=== PATIENT | male | born 1995 | race Caucasian/White ===

== ENCOUNTER 2020-02-18 13:38 | Emergency (ER) | payer BC ==
[2020-02-18] MEDS ORDERED: Cephalexin 500 MG Cap PO ONE (13:39)
[2020-02-18] MEDS: Diphtheria,Pertussis(Acell),Tetanus Vaccine 0.5 ML Syringe IM ONE (14:12)
--- NOTE | 2020-02-18 14:28 | EDM.PDOC ---
ED HPI GENERAL MEDICAL PROBLEM - General Chief Complaint: Laceration Stated Complaint: laceration Time Seen by Provider: 02/18/20 13:50 Source of Information: Reports: Patient History Limitations: Reports: No Limitations - History of Present Illness INITIAL COMMENTS - FREE TEXT/NARRATIVE: Patient to the emergency department working on some farm equipment has a laceration to the left hand third digit distally. Bleeding is controlled. There is no numbness or tingling. There is no proximal finger pain there is no hand pain there is no wrist pain no other symptoms. This happened just prior to arrival. The patient thinks that his tetanus shot is greater than 5 years. This will be updated in the emergency department Onset: Today Duration: Minutes: Location: Reports: Upper Extremity, Left Quality: Reports: Ache Severity: Mild Improves with: Reports: None Worsens with: Reports: None Context: Reports: Other (Laceration on farm equipment) Associated Symptoms: Denies: Confusion, Chest Pain, Nausea/Vomiting, Shortness of Breath, Weakness Treatments MID WIFE: Reports: Other (see below) (held pressure) Left Finger-Middle Pain Score (Numeric/FACES): 2 - Related Data Allergies Allergy/AdvReac Type Severity Reaction Status Date / Time No Known Allergies Allergy Verified 02/18/20 13:39 Home Meds: Home Meds cephALEXin [Keflex] 500 mg PO Q8H 7 Days #21 cap 02/18/20 [Rx] Past Medical History - Past Health History Medical/Surgical History: Denies Medical/Surgical History - Past Surgical History Head Surgeries/Procedures: Reports: None Social & Family History - Family History Family Medical History: Noncontributory - Tobacco Use Smoking Status *Q: Never Smoker - Caffeine Use Caffeine Use: Reports: Coffee - Recreational Drug Use Recreational Drug Use: No - Living Situation & Occupation Living situation: Reports: with Family Occupation: Employed ED ROS GENERAL - Review of Systems Review Of Systems: See Below Constitutional: Reports: No Symptoms. Denies: Fever HEENT: Reports: No Symptoms Respiratory: Reports: No Symptoms Cardiovascular: Reports: No Symptoms GI/Abdominal: Reports: No Symptoms. Denies: Nausea, Vomiting Musculoskeletal: Reports: Other (Pain to end of the left hand third digit palmar side approximately 1.5 cm laceration). Denies: Neck Pain, Back Pain Skin: Reports: Wound Neurological: Reports: No Symptoms. Denies: Numbness, Tingling Psychiatric: Reports: No Symptoms ED EXAM, SKIN/RASH Exam: See Below Exam Limited By: No Limitations General Appearance: Alert, WD/WN, No Apparent Distress Throat/Mouth: Normal Voice, No Airway Compromise Head: Atraumatic, Normocephalic Neck: Normal Inspection, Supple, Non-Tender, Full Range of Motion Respiratory/Chest: No Respiratory Distress, Lungs Clear, Normal Breath Sounds, Chest Non-Tender Cardiovascular: Normal Peripheral Pulses, Regular Rate, Rhythm, No Murmur Peripheral Pulses: 2+: Radial (L) Back Exam: Normal Inspection, Full Range of Motion Extremities: Normal Range of Motion, Normal Capillary Refill, Other (Laceration to the distal left third digit palmar side bleeding is controlled) Neurological: Alert, Oriented, Normal Cognition, Normal Gait, No Motor/Sensory Deficits Psychiatric: Normal Affect, Normal Mood Skin: Warm, Dry, Normal Color, Other (Laceration as above). No: Intact Location, Skin: Other (Left hand third digit distally palmar side) ED SKIN PROCEDURES - Laceration/Wound Repair Left Upper Anterior Distal Digit - 3rd (Middle) Appearance: Linear, Mildly Contaminated Distal NVT: Neuro & Vascular Intact, No Tendon Injury Anesthetic Type: Local Local Anesthesia - Lidocaine (Xylocaine): 1% Plain Local Anesthetic Volume: 4cc Skin Prep: Isopropyl Alcohol (Alcohol) Exploration/Debridement/Repair: Wound Explored, In a Bloodless Field, Explored to Base Closed with: Sutures Lac/Wound length In cm: 1.5 Suture Size: 5-0 # of Sutures: 5 Suture Type: Nylon Sterile Dressing Applied: Provider Tetanus Status Addressed: Other (updated in the ED) Complications: No Course - Vital Signs Text/Narrative:: Patient was evaluated in the emergency department the patient was advised of the need to clean and suture the wound and he agrees to proceed after the risks and benefits was explained. The was numbed locally with a total of 4 mL of 1% lidocaine without epi. Once the finger is numb the finger was cleaned extensively with normal saline and wound hand bobbin cleaner. No foreign body was noted. This was a dirty wound as the patient was working on machinery and I did advise him despite the best wound care that is still can become infected and also advised him that he will need to be started on antibiotics and he agrees. The patient will be discharged with Keflex 500 mg 3 times a day for 7 days to be advised to keep the wound clean and dry apply Neosporin 3 times a day leave open to the air as much as possible. The patient is to have this rechecked in 4 to 5 days and stitches can probably come out in 5 to 7 days. The patient is to return to the emergency department sooner if worse or any problems Last Recorded V/S: Last Vital Signs Temp 35.8 C L 02/18/20 13:39 Pulse 53 L 02/18/20 13:39 Resp 16 02/18/20 13:39 BP 107/51 L 02/18/20 13:46 Pulse Ox 100 02/18/20 13:39 - Orders/Labs/Meds Orders: Active Orders 24 hr Category Date Time Status Vaccines to be Administered [RC] PER UNIT ROUTINE Care 02/18/20 14:08 Active Meds: Medications Discontinued Medications Generic Name Dose Route Start Last Admin Trade Name Freq PRN Reason Stop Dose Admin Cephalexin 1 packet 02/18/20 14:56 02/18/20 15:00 Take Home: Cephalexin 500 Mg, 4 Cap Pack PO 02/18/20 14:57 1 packet ONETIME ONE Administration Diphtheria/Tetanus/Acell Pertussis 0.5 ml 02/18/20 14:08 02/18/20 14:12 Adacel IM 02/18/20 14:09 0.5 ml .ONCE ONE Administration Lidocaine HCl 20 ml 02/18/20 14:08 02/18/20 14:59 Xylocaine 1% INJECT 02/18/20 14:09 20 ml ONETIME ONE Administration Neomycin/Polymyxin/Bacitracin 1 each 02/18/20 14:49 02/18/20 14:59 Triple Antibiotic Oint TOP 02/18/20 14:50 1 each ONETIME ONE Administration Departure - Departure Time of Disposition: 14:53 Disposition: Home, Self-Care 01 Condition: Good Clinical Impression: Laceration of left middle finger w/o foreign body w/o damage to nail - Discharge Information *PRESCRIPTION DRUG MONITORING PROGRAM REVIEWED*: Not Applicable *COPY OF PRESCRIPTION DRUG MONITORING REPORT IN PATIENT JOSH: Not Applicable Prescriptions: cephALEXin [Keflex] 500 mg PO Q8H 7 Days #21 cap Referrals: Raymundo Davis MD [Primary Care Provider] - Forms: ED Department Discharge Additional Instructions: Keep the wound clean and dry Apply thin coat of Neosporin 3 times a day Keflex 500 mg 3 times a day for 7 days Have this wound rechecked in 3 to 4 days by your family doctor The sutures can probably come out in 7 days Leave the wound open to air as much as possible when you would be in a clean environment Return to the emergency department sooner if worse or any problems Sepsis Event Note (ED) - Evaluation Sepsis Screening Result: No Definite Risk - Focused Exam Vital Signs: Vital Signs Temp Pulse Resp BP Pulse Ox 02/18/20 13:46 107/51 L 02/18/20 13:39 35.8 C L 53 L 16 100 - Problem List & Annotations (1) Laceration of left middle finger w/o foreign body w/o damage to nail SNOMED Code(s): 87432635762169679, 06589959016854458 Code(s): S61.213A - LACERATION W/O FB OF L MID FINGER W/O DAMAGE TO NAIL, INIT Status: Acute Priority: Medium Current Visit: Yes Qualifiers: Encounter type: initial encounter Qualified Code(s): S61.213A - Laceration without foreign body of left middle finger without damage to nail, initial encounter - Problem List Review Problem List Initiated/Reviewed/Updated: Yes - My Orders Last 24 Hours: My Active Orders 02/18/20 14:08 Vaccines to be Administered [RC] PER UNIT ROUTINE - Assessment/Plan Last 24 Hours: My Active Orders 02/18/20 14:08 Vaccines to be Administered [RC] PER UNIT ROUTINE Plan: As above
[2020-02-18] MEDS: Lidocaine 1% 20 ML MDV INJECT ONE (14:59)
[2020-02-18] MEDS: Bacitracin/Neomycin/Polymyxin B Oint 0.9 GM U/D Packet TOP ONE (14:59)
[2020-02-18] MEDS: Take Home: Cephalexin 500 MG Cap, 4 Cap Pack PO ONE (15:00)
== END 2020-02-18 15:18 | disposition home or self-care (01) ==
LOC: CC.ED 13:38
DX: S61.213A Laceration without foreign body of left middle finger without damage to nail, initial encounter (principal); Z23 Encounter for immunization; W26.8XXA Contact with other sharp object(s), not elsewhere classified, initial encounter
CPT/HCPCS: 12001; 90471; 90715; 99282; A9270; J2001

== ENCOUNTER 2023-02-10 12:15 | Emergency (ER) | payer BC ==
[~2023-02-10 12:15] MED LIST: Sodium Chloride 0.9% 1,000 ML IV ONE
[2023-02-10 12:32] LABS: EOSINOPHILS ABSOLUTE AUTO 0.04 10^3/uL (0.00-1.50); EOSINOPHILS PERCENT AUTO 12.1 % (0-6); HEMATOCRIT 31.6 % (42.0-52.0); HEMOGLOBIN 10.8 g/dL (14.0-18.0); LYMPHOCYTES ABSOLUTE AUTO 0.23 10^3/uL (0.60-5.00); LYMPHOCYTES PERCENT AUTO 69.7 % (24-44); MEAN CORPUSCULAR HEMOGLOBIN 31.1 pg (27.0-32.0); MEAN CORPUSCULAR HGB CONC 34.2 g/dL (32.0-36.0); MEAN CORPUSCULAR VOLUME 91.1 fL (83.0-97.0); MONOCYTES ABSOLUTE AUTO 0.01 10^3/uL (0.00-1.50); NEUTROPHILS ABSOLUTE AUTO 0.05 x10^3/uL (1.80-8.00); NEUTROPHILS PERCENT AUTO 15.2 % (41-71); PLATELET COUNT,PLT 88 10^3/uL (150-400); RED BLOOD CELL COUNT 3.47 x10^6/uL (4.50-6.00)
[2023-02-10 12:46] LABS: ALANINE AMINOTRANSFERASE,ALT 110 U/L (12-78); ALBUMIN 3.2 g/dL (3.4-5.0); ALKALINE PHOSPHATASE 33 U/L (46-116); ASPARTATE AMNIOTRANSFERASE,AST 40 U/L (15-37); BILIRUBIN TOTAL 0.7 mg/dL (0.0-1.0); BLOOD UREA NITROGEN,BUN 21 mg/dL (7-18); CALCIUM 8.2 mg/dL (8.4-10.1); CARBON DIOXIDE,CO2 30 mmol/L (21-32); CHLORIDE,CL 102 mEq/L (98-106); CREATININE 1.4 mg/dL (0.7-1.3); EST CRCL DRUG DOSING (CG) 90.72 mL/min; GLUCOSE RANDOM 111 mg/dL (75-99); MAGNESIUM 1.7 mg/dL (1.8-2.4); POTASSIUM,K 3.2 mEq/L (3.5-5.0); PROTEIN TOTAL,TP 6.4 g/dL (6.4-8.2); SODIUM,NA 138 mEq/L (136-145)
[2023-02-10 12:47] LABS: ESTIMATED GFR 70 mL/min (>=60)
[2023-02-10] MEDS ORDERED: Potassium Chloride 10 MEQ Tab.ER PO ONE (12:55)
[2023-02-10 12:58] LABS: WHITE BLOOD CELL COUNT,WBC 0.3 10^3/uL (4.0-11.0)
[2023-02-10 13:04] LABS: APPEARANCE,URINE SLIGHTLY CLOUDY (CLEAR); BILIRUBIN,URINE NEGATIVE (NEGATIVE); COLOR,URINE YELLOW (YELLOW); GLUCOSE,URINE NEGATIVE (NEGATIVE); KETONES,URINE NEGATIVE (NEGATIVE); LEUKOCYTE ESTERASE,URINE NEGATIVE (NEGATIVE); NITRITE,URINE NEGATIVE (NEGATIVE); OCCULT BLOOD,URINE SMALL (NEGATIVE); PH,URINE 5.5 (4.5-8.0); PROTEIN,URINE 100 mg/dL (NEGATIVE); UROBILINOGEN,URINE 0.2 EU/dL (0.2-1.0)
[2023-02-10 13:12] LABS: SQUAMOUS EPITHELIAL CELLS,UR NOT SEEN /HPF (NOT SEEN); WBC,URINE 0-5 /HPF (0-5)
[2023-02-10 13:13] LABS: BACTERIA,URINE FEW /HPF (NOT SEEN); GRANULAR CASTS,URINE MODERATE /LPF (NOT SEEN); MUCUS,URINE MODERATE /HPF (NOT SEEN)
== END 2023-02-10 13:39 | disposition home or self-care (01) ==
LOC: CC.ED 12:15
DX: E86.0 Dehydration (principal); E87.6 Hypokalemia; E83.42 Hypomagnesemia
CPT/HCPCS: 36415; 70450; 80053; 81001; 83735; 84484; 85025; 93005; 93010; 99284; 99285; A9270-GY; J7030

== ENCOUNTER 2023-07-07 10:21 | Observation (INO) | payer BC ==
[2023-07-07] MEDS ORDERED: Morphine 2 MG/ML SYRINGE IVPUSH ONE (11:20)
[2023-07-07] MEDS ORDERED: Ondansetron 4 MG/2 ML SDV IVPUSH ONE (11:22)
[2023-07-07] MEDS ORDERED: Sodium Chloride 0.9% 1,000 ML IV SCH (11:30)
[2023-07-07 12:13] LABS: APPEARANCE,URINE CLEAR (CLEAR); BILIRUBIN,URINE NEGATIVE (NEGATIVE); COLOR,URINE DARK YELLOW (YELLOW); GLUCOSE,URINE NEGATIVE (NEGATIVE); KETONES,URINE NEGATIVE (NEGATIVE); LEUKOCYTE ESTERASE,URINE NEGATIVE (NEGATIVE); NITRITE,URINE NEGATIVE (NEGATIVE); OCCULT BLOOD,URINE NEGATIVE (NEGATIVE); PH,URINE 6.5 (4.5-8.0); PROTEIN,URINE NEGATIVE (NEGATIVE); UROBILINOGEN,URINE 0.2 EU/dL (0.2-1.0)
[2023-07-07] MEDS ORDERED: Magnesium Sulfate/Water 2 GM in Premix Bag 1 BAG IV ONE (12:50)
[2023-07-07] MEDS ORDERED: Acetaminophen 325 MG Tab PO PRN (14:20)
[2023-07-07] MEDS ORDERED: Morphine 2 MG/ML SYRINGE IVPUSH PRN (14:20)
[2023-07-07] MEDS ORDERED: ceFAZolin 2 GM Vial IVPUSH ONE (18:14)
[2023-07-07] MEDS ORDERED: DULoxetine 30 MG Cap PO SCH (20:00)
[2023-07-07] MEDS: Gabapentin 300 MG Cap PO SCH (20:21)
[2023-07-07] MEDS: Sodium Chloride 0.9% 1,000 ML IV SCH (20:25)
[2023-07-08] MEDS: Gabapentin 300 MG Cap PO SCH (07:34)
[2023-07-08] MEDS: Sodium Chloride 0.9% 1,000 ML IV SCH (07:48)
[2023-07-08] MEDS ORDERED: DULoxetine 30 MG Cap PO SCH (08:00)
[2023-07-08] MEDS ORDERED: LORazepam 0.5 MG Tab PO ONE (08:18)
[2023-07-08 09:16] LABS: BASOPHILS ABSOLUTE AUTO 0.04 10^3/uL (0.00-0.50); BASOPHILS PERCENT AUTO 1.1 % (0-1); EOSINOPHILS PERCENT AUTO 10.8 % (0-6); HEMATOCRIT 20.9 % (42.0-52.0); IMMATURE GRAN ABSOLUTE AUTO 0.01 10^3/uL (0.00-0.49); IMMATURE GRAN PERCENT AUTO 0.3 % (0.0-4.9); LYMPHOCYTES ABSOLUTE AUTO 0.42 10^3/uL (0.60-5.00); LYMPHOCYTES PERCENT AUTO 11.4 % (24-44); MEAN CORPUSCULAR HEMOGLOBIN 31.7 pg (27.0-32.0); MEAN CORPUSCULAR VOLUME 93.3 fL (83.0-97.0); MONOCYTES ABSOLUTE AUTO 0.48 10^3/uL (0.00-1.50); NEUTROPHILS ABSOLUTE AUTO 2.35 x10^3/uL (1.80-8.00); NEUTROPHILS PERCENT AUTO 63.4 % (41-71); PLATELET COUNT,PLT 241 10^3/uL (150-400); RED BLOOD CELL COUNT 2.24 x10^6/uL (4.50-6.00); WHITE BLOOD CELL COUNT,WBC 3.7 10^3/uL (4.0-11.0)
[2023-07-08 09:28] LABS: ALBUMIN 2.2 g/dL (3.4-5.0); BILIRUBIN TOTAL 0.4 mg/dL (0.0-1.0); CALCIUM 8.4 mg/dL (8.4-10.1); EST CRCL DRUG DOSING (CG) 123.48 mL/min; HEMOGLOBIN 7.1 g/dL (14.0-18.0); POTASSIUM,K 3.9 mEq/L (3.5-5.0); PROTEIN TOTAL,TP 5.3 g/dL (6.4-8.2)
[2023-07-09 10:47] LABS: BASO'S 0 /cu mm; EO'S 0 /cu mm; LYMPH'S 2066 /cu mm; MONO'S 191 /cu mm; OTHER 1453 /cu mm; PMN'S 115 /cu mm
== END 2023-07-08 13:15 ==
LOC: CC.ED 10:21 → CC.MS 14:02 → UNDOADMOB 14:02 → CC.MS 14:35
PROVIDERS: ADMIT Physician Assistant Medical; ATTEND Physician Assistant Medical
DX: R18.8 Other ascites (principal); C62.90 Malignant neoplasm of unspecified testis, unspecified whether descended or undescended; C77.9 Secondary and unspecified malignant neoplasm of lymph node, unspecified; Z79.899 Other long term (current) drug therapy
CPT/HCPCS: 36415; 49083; 80053; 81003; 82042; 84478; 85025; 87040; 87070; 87205; 89051; A9270; J0690; J2270; J2405; J7030; 96361; 96374; 96375; 96376; 99223; 99239; 99284-25